=== PATIENT | female | born 1985 | race Caucasian/White ===

== ENCOUNTER 2021-01-03 19:26 | Emergency (ER) | payer OTHER ==
[~2021-01-03] VITALS: Ht 165.1 cm; Wt 79.5 kg
--- NOTE | 2021-01-03 19:49 | PHYS DOC ---
Adult General Chief Complaint Chief Complaint: SHORTNESS OF BREATH HPI HPI Patient is a 35-year-old female who presents with a chief complaint of chills, body aches, dry cough and feelings of shortness of breath. States she saw her primary care physician earlier in the week and was tested for Covid which was negative. Denies fevers, runny nose, sore throat, chest pain, abdominal pain, nausea, vomiting, dysuria, hematuria, diarrhea or blood in the stool. Review of Systems Review of Systems Review of systems otherwise unremarkable except noted in HPI Physical Exam Physical Exam Constitutional: Well developed, well nourished, no acute distress, non-toxic appearance. [] HENT: Normocephalic, atraumatic, bilateral external ears normal, oropharynx moist, no oral exudates, nose normal. [] Eyes: conjunctiva normal, no discharge. [] Neck: Normal range of motion, no tenderness, supple, no stridor. [] Cardiovascular: Sinus tachycardia Lungs & Thorax: Normal work of breathing, no respiratory distress, very mild global bilateral rhonchi [] Abdomen: soft, no tenderness, no masses, no pulsatile masses. [] Skin: Warm, dry, no erythema, no rash. [] Extremities: No tenderness, ROM intact, Neurologic: Alert and oriented X 3, no focal deficits noted. [] Psychologic: Affect normal, judgement normal, mood normal. [] EKG EKG [] Radiology/Procedures Radiology/Procedures [] AP chest. HISTORY: Short of breath AP view was taken of the chest. Lungs are clear. Heart is normal in size. There is no pleural effusion. IMPRESSION: 1. No acute chest disease. Electronically signed by: Keny Neff MD (01/03/2021 8:22 PM) [facility] Heart Score C/O Chest Pain: No Risk Factors: Risk Factors: DM, Current or recent (<one month) smoker, HTN, HLP, family history of CAD, obesity. Risk Scores: Risk Factors: DM, Current or recent (<one month) smoker, HTN, HLP, family history of CAD, obesity. Course & Med Decision Making Course & Med Decision Making Patient is a 35-year-old female who presents with upper respiratory infection symptoms Vital signs notable for sinus tachycardia. Physical exam noted above. EKG noted above and normal. Troponin normal. Chest x-ray normal. Laboratory analysis normal. Discussed with patient all findings and recommended ceasing smoking as she is a 25 to 30-year pack smoker and her risk of developing COPD is high. Advised to follow-up with primary care physician on Wednesday to update on ED visit. Gave return precautions to the ED. Patient very grateful, verbalized understanding and agreed with plan of discharge. [] Dragon Disclaimer Dragon Disclaimer This electronic medical record was generated, in whole or in part, using a voice recognition dictation system. Departure Departure: Impression: Primary Impression: Upper respiratory infection Additional Impression: Smoker Disposition: HOME / SELF CARE / HOMELESS Condition: GOOD Referrals: NIKHIL ROJAS (PCP) Patient Instructions: Smoking Cessation, Upper Respiratory Infection, Adult Additional Instructions: Please read all of the attached information carefully. As discussed, please try to cease smoking cigarettes soon as you can. Please call your primary care physician first thing Wednesday morning to set up a follow-up visit to discuss your visit today in the ED. Please come back to the emergency department immediately with new or concerning symptoms as discussed. Problem Qualifiers ALICE SIMS MD Jan 03, 2021 19:49
--- NOTE | 2021-01-03 19:56 | EKG ---
[address] [address] Test Date: 2021-01-03 Test Time: 19:48:16 Pat Name: ROBBIE VICENTE Department: Room: Gender: F Attacher: : 1985 Requested By: ALICE SIMS Order Number: [id number] Reading MD: Measurements Intervals Alexander Rate: 95 P: 42 SC: 166 QRS: 50 QRSD: 78 T: -7 QT: 322 QTc: 408 Interpretive Statements SINUS RHYTHM NORMAL ECG RI6.02 No previous ECG available for comparison
[2021-01-03 20:08] VITALS: BP 118/68
--- NOTE | 2021-01-03 20:25 | RAD ---
AP chest. HISTORY: Short of breath AP view was taken of the chest. Lungs are clear. Heart is normal in size. There is no pleural effusio n. IMPRESSION: 1. No acute chest disease. Electronically signed by: Keny Neff MD (01/03/2021 8:22 PM) [facility]
[2021-01-03 20:34] LABS: BASO # 0.1 x10^3/uL (0.0-0.2); BASO % 1 % (0-3); EOS # 0.1 x10^3/uL (0.0-0.7); EOS % 1 % (0-3); HEMATOCRIT 42.3 % (36.0-47.0); HEMOGLOBIN 14.6 g/dL (12.0-15.5); LYMPH # 2.7 x10^3/uL (1.0-4.8); LYMPH % 29 % (24-48); MEAN CORPUSCULAR HEMOGLOBIN 31 pg (25-35); MEAN CORPUSCULAR HGB CONC 35 g/dL (31-37); MEAN CORPUSCULAR VOLUME 90 fL (79-100); MONO # 0.8 x10^3/uL (0.0-1.1); MONO % 9 % (0-9); NEUT # 5.6 x10^3uL (1.8-7.7); NEUT % 60 % (31-73); PLATELET COUNT 230 x10^3/uL (140-400); RED BLOOD COUNT 4.68 x10^6/uL (3.50-5.40); RED CELL DISTRIBUTION WIDTH 13.3 % (11.5-14.5); WHITE BLOOD COUNT 9.2 x10^3/uL (4.0-11.0)
[2021-01-03 20:36] LABS: CALCIUM 8.8 mg/dL (8.5-10.1); CREATININE 0.8 mg/dL (0.6-1.0); GFR 81.2
[2021-01-03 20:44] LABS: POTASSIUM 3.6 mmol/L (3.5-5.1)
== END 2021-01-03 21:04 | disposition home or self-care (01) ==
LOC: ER 19:26
DX: J06.9 Acute upper respiratory infection, unspecified (principal); F17.200 Nicotine dependence, unspecified, uncomplicated
CPT/HCPCS: 36415; 71045; 80048; 81025; 84484; 85025; 93005; 99285

== ENCOUNTER 2021-02-28 20:54 | Emergency (ER) | payer OTHER ==
[~2021-02-28] VITALS: Ht 165.1 cm; Wt 77.7 kg
--- NOTE | 2021-02-28 21:15 | PHYS DOC ---
Past History Past Medical History: No Pertinent History Alcohol Use: None General Adult EDM: Chief Complaint: ABDOMINAL PAIN HPI: HPI: ".. I was seen at [facility].. they did a x-ray but it did not show anything... they said maybe,, appendix.. and or ovarian cysts..." Patient is a 36 year old female dependent who presents with above hx and complaints of Rt. lower abdomen pain last week. Was seen at [facility]. Xray of abdomen at that time showed no pathology. Pt. history 2 vaginal and has had an IUD since last . Current IUD is been present for 2 years. No history of STDs. No history of trauma. No history of bad food. Pain is reproduced on right lower quadrant. No true psoas sign. No history of immuno suppression. Review of Systems: Review of Systems: Constitutional: Denies fever or chills Eyes: Denies change in visual acuity HENT: Denies nasal congestion or sore throat Respiratory: Denies cough or shortness of breath Cardiovascular: Denies chest pain or edema GI: Complaints of abdominal pain, nausea, vomiting,. Denies bloody stools or diarrhea : Denies dysuria Musculoskeletal: Denies back pain or joint pain Integument: Denies rash Neurologic: Denies headache, focal weakness or sensory changes Endocrine: Denies polyuria or polydipsia Lymphatic: Denies swollen glands Psychiatric: Denies depression or anxiety Family History: Family History: Non-contributory Current Medications: Current Meds: See Nurse for home meds Allergies: Allergies: Allergies Coded Allergies Type Severity Reaction Last Updated Verified No Known Drug Allergies 01/03/21 No Physical Exam: PE: Constitutional: mild to moderate acute distress, non-toxic appearance. [] HENT: Normocephalic, atraumatic, bilateral external ears normal, oropharynx moist, no oral exudates, nose normal. [] Eyes: PERRLA, EOMI, conjunctiva normal, no discharge. [] Neck: Normal range of motion, no tenderness, supple, no stridor. [] Cardiovascular:Heart rate regular rhythm, no murmur [] Lungs & Thorax: Bilateral breath sounds clear to auscultation [] Abdomen: Bowel sounds normal, soft,rt.lower tenderness, no masses, no pulsatile masses. [] Rebound to Rt. lower. Deferred pelvic pain at this time. Denies any vaginal discharge or STD risk Skin: Warm, dry, no erythema, no rash. [] Back: No tenderness, no CVA tenderness. [] Extremities: No tenderness, no cyanosis, no clubbing, ROM intact, no edema. [] No psoas sign Neurologic: Alert and oriented X 3, normal motor function, normal sensory function, no focal deficits noted. [] Psychologic: Affect normal, judgement normal, mood normal. [] EKG: EKG: [] Radiology/Procedures: Radiology/Procedures: [][place] [address] IMAGING REPORT Signed PATIENT: ROBBIE VICENTE ACCOUNT: [id number] : 1985 LOCATION: ER AGE: 36 SEX: F EXAM STATUS: REG ER ORD. PHYSICIAN: DARIEL KRUSE MD REASON: pain Rt lower quad. PROCEDURE: CT ABD PELV W/ORAL&IV CONTRAST CT scan of the abdomen and pelvis with contrast 02/28/2021 CLINICAL HISTORY: Right lower quadrant abdominal pain. TECHNIQUE: After the oral administration of contrast and the intravenous admi nistration of 75 cc of Isovue-370, contiguous, 5 mm axial sections were obtained through the abdomen and pelvis. One or more of the following individualized dose reduction techniques were utilized for this study: 1. Automated exposure control. 2. Adjustment of the mA and/or kV according to patient size. 3. Use of iterative reconstruction technique. FINDINGS: Images through the lung bases demonstrate minimal dependent subsegmental atelectasis bilaterally. The liver, spleen, pancreas, adrenal glands and kidneys are within normal limits. The gallbladder is contracted. No free fluid or free air is seen within the abdomen. Mildly dilated fluid-filled small bowel loops are seen within the right lower quadrant of the abdomen without definite evidence of obstruction. The appendix is well-visualized and is within normal limits. Images through the pelvis demonstrate the urinary bladder distended with urine. An IUD is seen within the expected location of the endometrial canal of the uterus. No adnexal mass is seen. No free fluid is noted. Calcifications are seen within the pelvis consistent with phleboliths. No free fluid is seen. Minimal S-shaped curvature of the thoracolumbar spine is seen. IMPRESSION: No acute abnormality is seen. Electronically signed by: Jalil James MD (02/28/2021 11:28 PM) [id number] DICTATED AND SIGNED BY: JALIL JAMES MD DATE: 02/28/21 2990 CC: DARIEL KRUSE MD; PCP,UNKNOWN ~MTH0 0 Heart Score: C/O Chest Pain: N/A Risk Factors: Risk Factors: DM, Current or recent (<one month) smoker, HTN, HLP, family history of CAD, obesity. Risk Scores: Score 0 - 3: 2.5% MACE over next 6 weeks - Discharge Home Score 4 - 6: 20.3% MACE over next 6 weeks - Admit for Clinical Observation Score 7 - 10: 72.7% MACE over next 6 weeks - Early Invasive Strategies Course & Med Decision Making: Course & Med Decision Making Pertinent Labs and Imaging studies reviewed. (See chart for details) Take on a clear fluid diet only for the next 2 days. No solids or milk products. Clear fluids allow bowel rest. Reexam if no improvement. Follow-up at [facility]. Patient given copy of CT to bring of her on follow-up. Impression: 1. Abdomen Pain 2. Mild elevation of [id number] 3. Viral syndrome [] Dragon Disclaimer: Jackie Disclaimer: This electronic medical record was generated, in whole or in part, using a voice recognition dictation system. Departure Departure: Referrals: PCP,UNKNOWN (PCP) DARIEL KRUSE MD Feb 28, 2021 21:15
[2021-02-28 21:49] LABS: BILIRUBIN,URINE NEG (NEG); CLARITY,URINE CLEAR; COLOR,URINE YELLOW; GLUCOSE,URINE NEG (NEG); NITRITE,URINE NEG (NEG); UROBILINOGEN,URINE 0.2 mg/dL (0.2 mg/dL)
[2021-02-28 21:54] LABS: BACTERIA,URINE FEW /HPF (0-FEW); SQUAMOUS EPITHELIAL CELL,UR MOD /LPF
[2021-02-28] MEDS ORDERED: ONDANSETRON PF 4 MG/2 ML VIAL. ONE (22:17)
[2021-02-28] MEDS ORDERED: CONTRAST GIVEN. MC PRN (22:45)
[2021-02-28] MEDS ORDERED: KETOROLAC 30 MG/ML VIAL. IVP ONE (23:00)
[2021-02-28] MEDS ORDERED: MAGNESIUM HYDROXIDE 2,400 MG/30 ML ORAL.SUSP. PO ONE (23:00)
[2021-02-28] MEDS ORDERED: ONDANSETRON PF 4 MG/2 ML VIAL. IVP ONE (23:00)
[2021-02-28] MEDS ORDERED: IV RINGERS SOLUTION,LACTATED 1,000 ML IV SCH (23:00)
[2021-02-28] MEDS ORDERED: IOHEXOL 240 MG/ML 50ML VIAL. PO ONE (23:00)
[2021-02-28] MEDS ORDERED: FAMOTIDINE 20 MG/2 ML VIAL IVP ONE (23:00)
[2021-02-28] MEDS ORDERED: IOHEXOL 300 MG/ML 75 ML VIAL. IV ONE (23:00)
[2021-02-28 23:01] LABS: CALCIUM 8.7 mg/dL (8.5-10.1); CREATININE 0.8 mg/dL (0.6-1.0); GFR 80.7; POTASSIUM 3.7 mmol/L (3.5-5.1)
[2021-02-28 23:08] LABS: DIRECT BILIRUBIN 0.1 mg/dL (0.0-0.2); TOTAL BILIRUBIN 0.5 mg/dL (0.2-1.0); TOTAL PROTEIN 7.5 g/dL (6.4-8.2)
[2021-02-28 23:13] LABS: BASO # 0.1 x10^3/uL (0.0-0.2); BASO % 1 % (0-3); EOS # 0.1 x10^3/uL (0.0-0.7); EOS % 1 % (0-3); HEMATOCRIT 43.6 % (36.0-47.0); HEMOGLOBIN 15.2 g/dL (12.0-15.5); LYMPH # 2.5 x10^3/uL (1.0-4.8); LYMPH % 20 % (24-48); MEAN CORPUSCULAR HEMOGLOBIN 32 pg (25-35); MEAN CORPUSCULAR HGB CONC 35 g/dL (31-37); MEAN CORPUSCULAR VOLUME 91 fL (79-100); MONO # 0.9 x10^3/uL (0.0-1.1); MONO % 7 % (0-9); NEUT # 9.4 x10^3uL (1.8-7.7); NEUT % 73 % (31-73); PLATELET COUNT 215 x10^3/uL (140-400); RED BLOOD COUNT 4.79 x10^6/uL (3.50-5.40); RED CELL DISTRIBUTION WIDTH 13.5 % (11.5-14.5); WHITE BLOOD COUNT 12.9 x10^3/uL (4.0-11.0)
--- NOTE | 2021-02-28 23:30 | RAD ---
CT scan of the abdomen and pelvis with contrast 02/28/2021 CLINICAL HISTORY: Right lower quadrant abdominal pain. TECHNIQUE: After the oral administration of contrast and the intravenous administration of 75 cc of I sovue-370, contiguous, 5 mm axial sections were obtained through the abdomen and pelvis. One or more of the following individualized dose reduction techniques were utilized for this study: 1. Automated exposure control. 2. Adjustment of the mA and/or kV according to patient size. 3. Use of iterative reconstruction technique. FINDINGS: Images through the lung bases demonstrate minimal dependent subsegmental atelectasis bilate rally. The liver, spleen, pancreas, adrenal glands and kidneys are within normal limits. The gallbladder is contracted. No free fluid or free air is seen within the abdomen. Mildly dilated f luid-filled small bowel loops are seen within the right lower quadrant of the abdomen without definit e evidence of obstruction. The appendix is well-visualized and is within normal limits. Images through the pelvis demonstrate the urinary bladder distended with urine. An IUD is seen within the expected location of the endometrial canal of the uterus. No adnexal mass is seen. No free fluid is noted. Calcifications are seen within the pelvis consistent with phleboliths. No free fluid is se en. Minimal S-shaped curvature of the thoracolumbar spine is seen. IMPRESSION: No acute abnormality is seen. Electronically signed by: Jalil Lloyd MD (02/28/2021 11:28 PM) [id number]
[2021-03-01 01:00] VITALS: BP 104/67
== END 2021-03-01 01:05 | disposition home or self-care (01) ==
LOC: ER 20:54
DX: R10.31 Right lower quadrant pain (principal); B34.9 Viral infection, unspecified; D72.829 Elevated white blood cell count, unspecified
CPT/HCPCS: 36415; 74177; 80048; 80076; 81001; 81025; 82150; 82550; 83690; 85025; 96361; 96374; 96375; 99285; J1885; J2405; J3490; J7120; Q9966